=== PATIENT | male | born 1950 | race Caucasian/White ===

== ENCOUNTER 2021-05-02 09:18 | Day surgery (SDC) | payer MEDICARE ==
[2021-04-27 12:50] LABS: BASOPHILS % (AUTO) 0.8 % (0.0-5.0); EOSINOPHILS % (AUTO) 14.8 % (0.0-8.0); HEMATOCRIT 38.4 % (42-54); LYMPHOCYTES % (AUTO) 20.8 % (21.0-51.0); MEAN CORPUSCULAR HEMOGLOBIN 29.9 pg (27.0-33.0); MEAN CORPUSCULAR HGB CONC 33.6 g/dL (32.0-36.0); MEAN CORPUSCULAR VOLUME 89.1 fL (79-99); MONOCYTES % (AUTO) 7.3 % (3.0-13.0); NEUTROPHILS % (AUTO) 55.8 % (40.0-77.0); PLATELET COUNT (AUTO) 208 K/uL (130-400); RED BLOOD CELL COUNT(AUTO) 4.31 MIL/uL (4.50-6.20); RED CELL DISTRIBUTION WIDTH 13.8 % (11.0-15.5); WHITE BLOOD COUNT (AUTO) 6.3 K/uL (4.8-10.8)
[2021-04-29 09:49] VITALS: BP 122/83
[2021-05-02] VITALS (15 sets, daily range): BP systolic 113–129; BP diastolic 74–90
[~2021-05-02] VITALS: Ht 185.4 cm; Wt 116.5 kg
[~2021-05-02 09:18] MED LIST: AEC81 PO; ATOR40TA71 PO; CEFTRIAXONE 1G VIAL IVP ONE; HYDR12.54 PO; LANS30CA55 PO; NIFE-40 PO; PROP80TA4 PO; TAMS-1 PO
[2021-05-02] MEDS ORDERED: IOHEXOL-350 50ML VIAL IV ONE (10:07)
[2021-05-02] MEDS ORDERED: PROPOFOL 10 MG/ML 20ML VIAL IV ONE (10:19)
[2021-05-02] MEDS ORDERED: LIDOCAINE PF 100MG/5ML (2%) SYRINGE 5ML ONE ×2 (10:19→11:54)
[2021-05-02] MEDS ORDERED: ROCURONIUM 10MG/1ML SYR 10 MG/ML ML ONE (10:19)
[2021-05-02] MEDS ORDERED: SUCCINYLCHOLINE 200MG/10ML SYR ONE (10:19)
[2021-05-02] MEDS ORDERED: FENTANYL CITRATE PF 50 MCG/1 ML 2ML VIAL ONE (10:19)
[2021-05-02] MEDS ORDERED: LACTATED RINGERS 1000ML 1,000 ML IV ONE (10:25)
[2021-05-02] MEDS ORDERED: CEFTRIAXONE 1G VIAL ONE (10:34)
[2021-05-02] MEDS ORDERED: EPHEDRINE SULFATE 50 MG/ML AMPULE ONE (11:24)
[2021-05-02] MEDS ORDERED: NEOSTIGMINE 5MG/5ML SYR IV ONE (11:49)
[2021-05-02] MEDS ORDERED: GLYCOPYRROLATE 1 MG/5 ML SYRINGE ONE (11:49)
[2021-05-02] MEDS ORDERED: SUGAMMADEX SODIUM 200 MG/2 ML VIAL IV ONE (12:01)
== END 2021-05-02 13:45 | disposition home or self-care (01) ==
LOC: DAH 09:18
PROVIDERS: ATTEND Urology
DX: N30.20 Other chronic cystitis without hematuria (principal); N40.1 Benign prostatic hyperplasia with lower urinary tract symptoms; Z20.822 Contact with and (suspected) exposure to COVID-19; N32.3 Diverticulum of bladder; I10 Essential (primary) hypertension; E78.5 Hyperlipidemia, unspecified; K21.9 Gastro-esophageal reflux disease without esophagitis; Z79.899 Other long term (current) drug therapy; Z85.51 Personal history of malignant neoplasm of bladder
CPT/HCPCS: 36415; 52204; 74420; 80048; 85025; 87635; 88305; 93005; A4213; A4215; A4221; A4222; A4223; A4344; A4358 ×2; A4510; A4600; A4663; A5113; C1758; C9803; J0330; J0696; J2001 ×2; J2704; J2710; J3010; J3490 ×2; J7120; Q9967

== ENCOUNTER 2024-03-14 06:37 | Day surgery (SDC) | payer MEDICARE ==
[2024-03-12 12:52] VITALS: BP 125/81; PULSE 62; RESP 18; TEMP 98.1
--- NOTE | 2024-03-12 13:51 | EKG ---
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
[2024-03-14] VITALS (16 sets, daily range): BP systolic 105–140; BP diastolic 67–94; PULSE 64–69; RESP 12–20; TEMP 96.7–97.3
[~2024-03-14] VITALS: Ht 185.4 cm; Wt 117.1 kg
[~2024-03-14 06:37] MED LIST changes: -AEC81 PO; +ASPI-1197 PO; -CEFTRIAXONE 1G VIAL IVP ONE; -LANS30CA55 PO; +PANT40TA54 PO
[2024-03-14] MEDS ORDERED: dexaMETHasone SOD PHOSPHATE 10MG/ML 1ML VIAL ONE (07:39)
[2024-03-14] MEDS ORDERED: LIDOCAINE PF 100MG/5ML (2%) SYRINGE 5ML ONE (07:39)
[2024-03-14] MEDS ORDERED: proPOFol 10 MG/ML 20ML VIAL IV ONE (07:40)
[2024-03-14] MEDS ORDERED: rocuRONium bROMide 10MG/1ML 5ML VL ONE (07:40)
[2024-03-14] MEDS ORDERED: MIDAZOLAM HCL 1 MG/ML 2ML VIAL ONE (07:40)
[2024-03-14] MEDS ORDERED: ondanSETRON 4MG INJ ONE (07:40)
[2024-03-14] MEDS ORDERED: FENTanyl CITRate PF 50 MCG/1 ML 2ML VIAL ONE (07:41)
[2024-03-14] MEDS ORDERED: phenylEPHRINE HCL 10 MG/ML 1ML VIAL IV ONE (07:43)
[2024-03-14] MEDS: cefTRIAXone 1G VIAL ONE (07:49)
[2024-03-14] MEDS: LACTATED RINGERS 1000ML 1,000 ML IV ONE (07:50)
[2024-03-14] MEDS: cefTRIAXone 1G VIAL IVPB ONE (09:00)
[2024-03-14] MEDS ORDERED: GLYCOPYRROLATE 0.2 MG/ML 5 ML VIAL ONE (09:27)
[2024-03-14] MEDS ORDERED: NEOSTIGMINE METHYLSULFATE 1MG/ML IV ONE (09:27)
[2024-03-14] MEDS: IpraTROPium/alBUTERol SULFATE 3 ML SOLUTION IH ONE (10:13)
[2024-03-14] MEDS ORDERED: IpraTROPium/alBUTERol SULFATE 3 ML SOLUTION IH ONE (10:30)
--- NOTE | 2024-03-14 10:35 | NUR ---
ASSESSMENT: NO PENILE DRAINAGE PRESENT
[2024-03-14] MEDS: PHENAZOpyridine HCL 200 MG TAB 200 MG TABLET PO ONE (10:50)
--- NOTE | 2024-03-14 10:50 | NUR ---
IBARRA CATHETER: IBARRA CATHETER REMOVED OBTAINING 100CC CLEAR YELLOW URINE
--- NOTE | 2024-03-14 17:29 | OP ---
DATE OF PROCEDURE: 03/14/2024 PREOPERATIVE DIAGNOSIS: Bladder cancer. POSTOPERATIVE DIAGNOSIS: Bladder cancer. PROCEDURES PERFORMED: Cystourethroscopy, bladder biopsies with fulguration. ANESTHESIA: General endotracheal anesthesia. SURGEON: Meeta Escamilla MD FINDINGS: Shaggy raised area surrounding left ureteral orifice and left lateral wall. PREOPERATIVE INDICATIONS: This is a 73-year-old gentleman who in 2012 was diagnosed with urothelial cell carcinoma, noninvasive grade 2. The patient has been under surveillance since that time and his last bladder biopsy was in 2020 and he did have a low-grade noninvasive cancer. The patient's recent surveillance cystoscopy was noted to have what appeared to be an early regrowth around the left ureteral orifice. He does have a significant past medical history for smoking. His most recent PSA was 0.5. His creatinine on day of surgery was 0.92 with a glomerular filtration rate of 88. He has a distant history of having had, I believe a right pyeloplasty, dismembered pyeloplasty years ago. Preoperatively, he received Rocephin 1 g intravenously. DESCRIPTION OF PROCEDURE: The patient was brought to the operating room and placed in supine position. Following adequate general endotracheal anesthesia, he was sterilely draped and prepped in the usual fashion in the dorsal lithotomy position. KOLE hose and Venodyne stockings were placed on his lower extremities bilaterally and all pressure points were padded. A 22-[place] cystoscopic sheath with 30-degree angle lens in place was positioned per urethra and negotiated into the bladder. The urethra had circumferential sequential strictures, which were dilated with the scope. Moving into the bladder neck, there were no distinct bladder tumors, foreign bodies or stones. He did again have what appeared to be neocapillary growth along the left trigone and surrounding the left ureteral orifice. He had an additional area on the left lateral wall that appeared to have some raised erythema. The cold cup biopsy forceps was used to biopsy these 2 areas and then using a small Bugbee electrocautery, these areas were fulgurated. Any additional areas were also fulgurated. At the end of the procedure, there did not appear to be any abnormal notable areas. The patient's bladder was copiously irrigated and a 16-[place] Dill catheter was inserted. This will be removed prior to his discharge home today. He is to follow up in the office and 10-14 days to review the path report. TID: [id number] RECEIPT: [id number]
== END 2024-03-14 11:15 | disposition home or self-care (01) ==
LOC: DAH 06:37
PROVIDERS: ATTEND Urology
DX: C67.9 Malignant neoplasm of bladder, unspecified (principal); N30.20 Other chronic cystitis without hematuria; I10 Essential (primary) hypertension; K21.9 Gastro-esophageal reflux disease without esophagitis; Z88.8 Allergy status to other drugs, medicaments and biological substances; Z88.1 Allergy status to other antibiotic agents; Z79.899 Other long term (current) drug therapy; Z87.891 Personal history of nicotine dependence
CPT/HCPCS: 93005; 52204; 88305; 94640; A6260; A4663; A4354; J7120; J3010; J1100; J3490 ×2; J2003; J0696 ×2; J2250; J2704; J2405; J2710; J2371; A4358; A4649; A4215; A4223; A4213; A4222; A4221; A4600; A4510

== ENCOUNTER 2024-04-30 08:30 | Day surgery (SDC) | payer MEDICARE ==
[2024-04-30] VITALS (11 sets, daily range): BP systolic 96–122; BP diastolic 58–87; PULSE 60–78; RESP 15–17; TEMP 97.7–97.9
[~2024-04-30] VITALS: Ht 185.4 cm; Wt 117.9 kg
[~2024-04-30 08:30] MED LIST changes: -ASPI-1197 PO
[2024-04-30] MEDS: 0.9%NACL 1000ML 1,000 ML IV ONE (11:00)
[2024-04-30] MEDS ORDERED: proPOFol 10 MG/ML 20ML VIAL IV ONE (13:01)
--- NOTE | 2024-04-30 14:40 | NUR ---
Patient aox4. Denies c/o pain or discomfort. Voiced understanding to GI procedure precautions and follow up expectations. Ambulated to bathroom and Voided large amount of clear urine. PIV discontinued with catheter tip intact. Full and complete Discharge instructions given to Patient and Family. All questions answered. W/C to POV with Family to Home. Call your doctor if: Severe pain not easily relieved. Fever greater than 101 F. Difficulty breathing. Excessive dizziness. Rash breaks out. Excessive nausea or vomiting. Any other medical problems of your concern.
== END 2024-04-30 14:40 | disposition home or self-care (01) ==
LOC: DAH 08:30 → ENDO 08:30
PROVIDERS: ATTEND Internal Medicine Gastroenterology
DX: Z12.11 Encounter for screening for malignant neoplasm of colon (principal); D12.3 Benign neoplasm of transverse colon; K29.50 Unspecified chronic gastritis without bleeding; K22.70 Barrett's esophagus without dysplasia; K57.30 Diverticulosis of large intestine without perforation or abscess without bleeding; K64.0 First degree hemorrhoids; K21.9 Gastro-esophageal reflux disease without esophagitis; K31.89 Other diseases of stomach and duodenum; Z86.0101 Personal history of adenomatous and serrated colon polyps; E78.5 Hyperlipidemia, unspecified; I10 Essential (primary) hypertension; Z90.49 Acquired absence of other specified parts of digestive tract; Z98.890 Other specified postprocedural states; Z79.899 Other long term (current) drug therapy
CPT/HCPCS: 45380; 43239; J7030 ×2; J2704; A4615; A4215; A4223; A4222; A4221; A4663; A4606; J3490